=== PATIENT | female | born 1965 | race Caucasian/White ===

== ENCOUNTER 2017-11-19 15:12 | Emergency (ER) | payer OTHER ==
[~2017-11-19] VITALS: Ht 165.1 cm; Wt 99.8 kg
[~2017-11-19 15:12] MED LIST: BACITO TOP; Benadryl 50 mg50 MG PO; CEPH500 PO; CHOL10002 PO; CIPHYDOTSU; Cephalexin500 MG PO; DIAZ10; DIAZ10 PO; DIAZ2 PO; DICL25ER PO; DOCU100 PO; ESTR2 PO; Estradiol0.5 MG PO; HYDACE5; HYDACE5 PO; HYDMOR2 PO; IBUP800; IBUP800 PO; LEVSOD50 PO; LEVSOD75 PO; METPRE4DP PO; Norco 5-325 Ta1 EACH PO; OMEPRAZOLE MAGN20 MG PO; ONDA4ODT MM; OXYACE5T PO; POTASSIUM; PRAV20 PO; PROM25; Percocet 5-3251 EACH PO; RANI150 PO; RXHYDACE PO; RXOXYACE PO; TIZANIDINE HCL2 MG PO; TRAM50 PO; TRAZ150T57 PO; Zofran Odt4 MG SL; Zofran4 MG PO
[2017-11-19] MEDS ORDERED: ALBU90OI INH (17:55)
[2017-11-19] MEDS ORDERED: Prednisone50 MG PO (17:55)
== END 2017-11-19 18:04 | disposition home or self-care (01) ==
LOC: ER 15:12
DX: J40 Bronchitis, not specified as acute or chronic (principal); Z87.891 Personal history of nicotine dependence
CPT/HCPCS: 94640; 99283-25

== ENCOUNTER 2017-11-27 15:03 | Emergency (ER) | payer OTHER ==
[~2017-11-27] VITALS: Ht 165.1 cm; Wt 99.8 kg
[~2017-11-27 15:03] MED LIST changes: +ALBU90OI INH; +Prednisone50 MG PO
[2017-11-27 15:43] LABS: BASOPHILS ABSOLUTE AUTO 0.05 K/mm3 (0.00-0.23); BASOPHILS PERCENT AUTO 1 % (0-2); EOSINOPHILS ABSOLUTE AUTO 0.11 K/mm3 (0.00-0.68); EOSINOPHILS PERCENT AUTO 1 % (0-6); Hematocrit 47.1 % (33.0-51.0); Hemoglobin 15.9 g/dL (11.5-16.0); IMMATURE GRAN ABSOLUTE AUTO 0.04 K/mm3 (0.00-0.10); IMMATURE GRAN PERCENT AUTO 0 % (0-1); LYMPHOCYTES ABSOLUTE AUTO 3.66 K/mm3 (0.84-5.20); LYMPHOCYTES PERCENT AUTO 36 % (21-46); MONOCYTES ABSOLUTE AUTO 0.85 K/mm3 (0.16-1.47); MONOCYTES PERCENT AUTO 8 % (4-13); Mean Corpuscular HGB 29.6 pg (26.0-34.0); Mean Corpuscular HGB Conc 33.8 g/dL (31.5-36.5); Mean Corpuscular Volume 88 fL (80-100); Mean Platelet Volume 10.7 fL (9.1-12.4); NEUTROPHILS ABSOLUTE AUTO 5.58 K/mm3 (1.96-9.15); NEUTROPHILS PERCENT AUTO 54 % (41-73); Platelet Count 349 K/mm3 (150-400); RDW Coefficient Variation 12.2 % (11.7-14.2); RDW Standard Deviation 39.2 fL (35.1-46.3); Red Blood Cell Count 5.37 M/mm3 (3.80-5.20); White Blood Cell Count 10.29 K/mm3 (4.00-11.30)
[2017-11-27 15:59] LABS: Alanine Aminotransfer (ALT/SGP 34 U/L (12-78); Albumin, Blood 3.5 g/dL (3.4-5.0); Albumin/Globulin Ratio 0.8 (0.8-1.8); Alk Phos 144 U/L (50-136); Anion Gap 8 mmol/L (6-16); Aspartate Aminotrans (AST/SGOT 16 U/L (12-37); Bilirubin, Total 0.4 mg/dL (0.1-1.0); Blood Urea Nitrogen 17 mg/dL (8-24); Bun/Creatinine Ratio 17.6 (12.0-20.0); CO2, Blood 27 mmol/L (21-32); Calcium, Blood 9.1 mg/dL (8.5-10.1); Chloride, Blood 103 mmol/L (98-108); Creatinine, Blood 0.97 mg/dL (0.40-1.00); Globulin, Blood 4.5 g/dL (2.2-4.0); Glomerular Filtration Rate >60 (60-); Glucose, Blood 107 mg/dL (70-99); Potassium, Blood 4.2 mmol/L (3.5-5.5); Sodium, Blood 138 mmol/L (136-145); Troponin I <0.015 ng/mL (0.000-0.040)
[2017-11-27] MEDS ORDERED: Prednisone20 MG PO (17:24)
[2017-11-27] MEDS ORDERED: Zithromax250 MG PO (17:24)
== END 2017-11-27 18:28 | disposition home or self-care (01) ==
LOC: ER 15:03
PROVIDERS: Internal Medicine
DX: J40 Bronchitis, not specified as acute or chronic (principal); J98.01 Acute bronchospasm; E78.00 Pure hypercholesterolemia, unspecified; Z79.899 Other long term (current) drug therapy; Z79.52 Long term (current) use of systemic steroids; Z79.51 Long term (current) use of inhaled steroids; Z87.891 Personal history of nicotine dependence
CPT/HCPCS: 36415; 71046; 80053; 84484; 85025; 93005; 93010; 94640; 94644; 96374; 99284-25; J1100; J2930

== ENCOUNTER 2018-03-07 22:28 | Emergency (ER) | payer OTHER ==
[~2018-03-07] VITALS: Ht 162.6 cm; Wt 99.8 kg
[~2018-03-07 22:28] MED LIST changes: +ALBU2.5V5 NEB; +BENZ100A PO; +MIRT15 PO; +PRED20; +Prednisone20 MG PO; +ROPI.25 PO; +TYLECOD3 PO; +Zithromax250 MG PO
[2018-03-07 23:22] LABS: BASOPHILS ABSOLUTE AUTO 0.03 K/mm3 (0.00-0.23); BASOPHILS PERCENT AUTO 0 % (0-2); EOSINOPHILS ABSOLUTE AUTO 0.12 K/mm3 (0.00-0.68); EOSINOPHILS PERCENT AUTO 2 % (0-6); Hematocrit 46.2 % (33.0-51.0); Hemoglobin 15.4 g/dL (11.5-16.0); IMMATURE GRAN ABSOLUTE AUTO 0.02 K/mm3 (0.00-0.10); IMMATURE GRAN PERCENT AUTO 0 % (0-1); LYMPHOCYTES ABSOLUTE AUTO 2.67 K/mm3 (0.84-5.20); LYMPHOCYTES PERCENT AUTO 34 % (21-46); MONOCYTES ABSOLUTE AUTO 0.16 K/mm3 (0.16-1.47); MONOCYTES PERCENT AUTO 2 % (4-13); Mean Corpuscular HGB 28.9 pg (26.0-34.0); Mean Corpuscular HGB Conc 33.3 g/dL (31.5-36.5); Mean Corpuscular Volume 87 fL (80-100); Mean Platelet Volume 10.7 fL (9.1-12.4); NEUTROPHILS ABSOLUTE AUTO 4.98 K/mm3 (1.96-9.15); NEUTROPHILS PERCENT AUTO 62 % (41-73); Platelet Count 303 K/mm3 (150-400); RDW Coefficient Variation 11.9 % (11.7-14.2); RDW Standard Deviation 38.5 fL (35.1-46.3); Red Blood Cell Count 5.32 M/mm3 (3.80-5.20); White Blood Cell Count 7.98 K/mm3 (4.00-11.30)
[2018-03-07 23:40] LABS: Alanine Aminotransfer (ALT/SGP 38 U/L (12-78); Albumin, Blood 3.5 g/dL (3.4-5.0); Albumin/Globulin Ratio 0.8 (0.8-1.8); Alk Phos 131 U/L (50-136); Anion Gap 7 mmol/L (6-16); Aspartate Aminotrans (AST/SGOT 20 U/L (12-37); Bilirubin, Total 0.4 mg/dL (0.1-1.0); Blood Urea Nitrogen 22 mg/dL (8-24); CO2, Blood 30 mmol/L (21-32); Calcium, Blood 8.9 mg/dL (8.5-10.1); Chloride, Blood 99 mmol/L (98-108); Globulin, Blood 4.6 g/dL (2.2-4.0); Glomerular Filtration Rate >60 (60-); Glucose, Blood 114 mg/dL (70-99); Potassium, Blood 3.9 mmol/L (3.5-5.5); Sodium, Blood 136 mmol/L (136-145); Total Protein, Blood 8.1 g/dL (6.4-8.2)
[2018-03-07] MEDS ORDERED: Ranitidine HCl300 M1 PO (23:54)
[2018-03-08 01:49] LABS: Source, Urine Clean Catch
[2018-03-08 01:54] LABS: Bilirubin, Urine Neg (Neg); Blood, Urine Neg (Neg); Glucose Qualitative, Urine Neg (Neg); Ketones, Urine Neg (Neg); Leukocyte Esterase, Urine Neg (Neg); Nitrite, Urine Neg (Neg); Protein, Urine 1+ (Neg); Urobilinogen, Urine NORM (Normal); pH, Urine 6.5 (5.0-8.0)
[2018-03-08 01:55] LABS: Appearance, Urine Clear (Clear); Color, Urine Yellow (P-Yellow)
== END 2018-03-08 02:59 | disposition home or self-care (01) ==
LOC: ER 22:28
PROVIDERS: Emergency Medicine
DX: R11.2 Nausea with vomiting, unspecified (principal); T45.1X5A Adverse effect of antineoplastic and immunosuppressive drugs, initial encounter; C18.9 Malignant neoplasm of colon, unspecified; Z79.899 Other long term (current) drug therapy; Z87.891 Personal history of nicotine dependence
CPT/HCPCS: 36415; 80053; 83690; 85025; 96361; 96374; 96375; 99283-25; C9113; J2405; J2550; J3010; J7030

== ENCOUNTER 2018-03-27 10:59 | Emergency (ER) | payer OTHER ==
[~2018-03-27] VITALS: Ht 165.1 cm; Wt 99.8 kg
[~2018-03-27 10:59] MED LIST changes: +Ranitidine HCl300 M1 PO
[2018-03-27 11:40] LABS: BASOPHILS ABSOLUTE AUTO 0.03 K/mm3 (0.00-0.23); BASOPHILS PERCENT AUTO 1 % (0-2); EOSINOPHILS PERCENT AUTO 2 % (0-6); Hematocrit 43.9 % (33.0-51.0); Hemoglobin 14.6 g/dL (11.5-16.0); IMMATURE GRAN ABSOLUTE AUTO 0.01 K/mm3 (0.00-0.10); IMMATURE GRAN PERCENT AUTO 0 % (0-1); LYMPHOCYTES ABSOLUTE AUTO 2.12 K/mm3 (0.84-5.20); LYMPHOCYTES PERCENT AUTO 33 % (21-46); MONOCYTES ABSOLUTE AUTO 0.15 K/mm3 (0.16-1.47); MONOCYTES PERCENT AUTO 2 % (4-13); Mean Corpuscular HGB Conc 33.3 g/dL (31.5-36.5); Mean Corpuscular Volume 87 fL (80-100); Mean Platelet Volume 11.2 fL (9.1-12.4); NEUTROPHILS ABSOLUTE AUTO 3.93 K/mm3 (1.96-9.15); NEUTROPHILS PERCENT AUTO 62 % (41-73); Platelet Count 357 K/mm3 (150-400); RDW Standard Deviation 40.5 fL (35.1-46.3); Red Blood Cell Count 5.04 M/mm3 (3.80-5.20); White Blood Cell Count 6.34 K/mm3 (4.00-11.30)
[2018-03-27 11:48] LABS: Alanine Aminotransfer (ALT/SGP 20 U/L (12-78); Albumin, Blood 3.6 g/dL (3.4-5.0); Alk Phos 119 U/L (50-136); Anion Gap 8 mmol/L (6-16); Aspartate Aminotrans (AST/SGOT 15 U/L (12-37); Bilirubin, Total 0.5 mg/dL (0.1-1.0); Blood Urea Nitrogen 17 mg/dL (8-24); Bun/Creatinine Ratio 21.2 (12.0-20.0); CO2, Blood 26 mmol/L (21-32); Calcium, Blood 8.7 mg/dL (8.5-10.1); Chloride, Blood 105 mmol/L (98-108); Globulin, Blood 3.6 g/dL (2.2-4.0); Glomerular Filtration Rate >60 (60-); Glucose, Blood 111 mg/dL (70-99); Potassium, Blood 4.1 mmol/L (3.5-5.5); Sodium, Blood 139 mmol/L (136-145); Total Protein, Blood 7.2 g/dL (6.4-8.2)
[2018-03-27] MEDS ORDERED: ONDA4 PO (12:24)
[2018-03-27 12:42] LABS: Source, Urine Clean Catch
[2018-03-27 12:55] LABS: Appearance, Urine Clear (Clear); Bilirubin, Urine Neg (Neg); Blood, Urine Neg (Neg); Color, Urine Yellow (P-Yellow); Glucose Qualitative, Urine Neg (Neg); Ketones, Urine Neg (Neg); Leukocyte Esterase, Urine Neg (Neg); Nitrite, Urine Neg (Neg); Protein, Urine Neg (Neg); Urobilinogen, Urine NORM (Normal)
[2018-03-27] MEDS ORDERED: PROM25 PO (16:47)
== END 2018-03-27 17:00 | disposition home or self-care (01) ==
LOC: ER 10:59
PROVIDERS: Physician Assistant
DX: R11.2 Nausea with vomiting, unspecified (principal); T45.1X5A Adverse effect of antineoplastic and immunosuppressive drugs, initial encounter; C34.90 Malignant neoplasm of unspecified part of unspecified bronchus or lung; E78.00 Pure hypercholesterolemia, unspecified; Z79.899 Other long term (current) drug therapy
CPT/HCPCS: 76705; 80053; 81003; 83690; 85025; 96361; 96374; 96375; 99284-25; J0780; J1170; J1200; J1630; J2550; J7030; J7120

== ENCOUNTER 2018-04-16 02:22 | Observation (INO) | payer OTHER ==
[~2018-04-16] VITALS: Ht 165.1 cm; Wt 101.7 kg
[~2018-04-16 02:22] MED LIST changes: +ONDA4 PO; +PROM25 PO
[2018-04-16 02:45] LABS: BASOPHILS ABSOLUTE AUTO 0.04 K/mm3 (0.00-0.23); BASOPHILS PERCENT AUTO 0 % (0-2); EOSINOPHILS ABSOLUTE AUTO 0.06 K/mm3 (0.00-0.68); EOSINOPHILS PERCENT AUTO 1 % (0-6); Hematocrit 40.3 % (33.0-51.0); Hemoglobin 13.6 g/dL (11.5-16.0); IMMATURE GRAN ABSOLUTE AUTO 0.02 K/mm3 (0.00-0.10); IMMATURE GRAN PERCENT AUTO 0 % (0-1); LYMPHOCYTES ABSOLUTE AUTO 1.95 K/mm3 (0.84-5.20); LYMPHOCYTES PERCENT AUTO 18 % (21-46); MONOCYTES ABSOLUTE AUTO 0.23 K/mm3 (0.16-1.47); MONOCYTES PERCENT AUTO 2 % (4-13); Mean Corpuscular HGB 29.4 pg (26.0-34.0); Mean Corpuscular HGB Conc 33.7 g/dL (31.5-36.5); Mean Corpuscular Volume 87 fL (80-100); Mean Platelet Volume 10.9 fL (9.1-12.4); NEUTROPHILS ABSOLUTE AUTO 8.53 K/mm3 (1.96-9.15); NEUTROPHILS PERCENT AUTO 79 % (41-73); Platelet Count 208 K/mm3 (150-400); RDW Coefficient Variation 13.3 % (11.7-14.2); Red Blood Cell Count 4.63 M/mm3 (3.80-5.20); White Blood Cell Count 10.83 K/mm3 (4.00-11.30)
[2018-04-16 02:57] LABS: Alanine Aminotransfer (ALT/SGP 25 U/L (12-78); Albumin, Blood 3.4 g/dL (3.4-5.0); Albumin/Globulin Ratio 0.9 (0.8-1.8); Alk Phos 122 U/L (50-136); Anion Gap 8 mmol/L (6-16); Aspartate Aminotrans (AST/SGOT 19 U/L (12-37); Bilirubin, Total 0.7 mg/dL (0.1-1.0); Blood Urea Nitrogen 16 mg/dL (8-24); Bun/Creatinine Ratio 18.4 (12.0-20.0); CO2, Blood 28 mmol/L (21-32); Calcium, Blood 8.6 mg/dL (8.5-10.1); Chloride, Blood 105 mmol/L (98-108); Creatinine, Blood 0.87 mg/dL (0.40-1.00); Globulin, Blood 3.6 g/dL (2.2-4.0); Glomerular Filtration Rate >60 (60-); Glucose, Blood 105 mg/dL (70-99); Potassium, Blood 3.9 mmol/L (3.5-5.5); Sodium, Blood 141 mmol/L (136-145)
[2018-04-16 03:42] LABS: Source, Urine Clean Catch
[2018-04-16 03:52] LABS: Appearance, Urine Clear (Clear); Bilirubin, Urine Neg (Neg); Blood, Urine Neg (Neg); Color, Urine Pale Yellow (P-Yellow); Glucose Qualitative, Urine Neg (Neg); Ketones, Urine Neg (Neg); Leukocyte Esterase, Urine Neg (Neg); Nitrite, Urine Neg (Neg); Protein, Urine Neg (Neg); Specific Gravity, Urine 1.005 (1.003-1.022); Urobilinogen, Urine NORM (Normal)
--- NOTE | 2018-04-16 05:58 | NUR ---
MEDICAL ADMIT/SHIFT SUMMARY PT MEDICAL NO TELE STATUS, BROUGHT TO PCU ROOM 7 FROM THE ER BY RMTIMO TODAY @ APPROX 0500. PT ABLE TO AMBULATE FROM GURNEY TO BED AND INTO THE BATHROOM W/OUT ASSISTANCE OR DIFFICULTY. PT C/O NAUSEA, STATES CHEMOTHERAPY TX 04/13 FOLLOWED BY N&V SINCE 04/14. PT STATES LAST EPISODE OF VOMITING TO BE YESTERDAY AFTERNOON, 04/15. PT TX'D FOR NAUSEA PER [facility]. PT STATES NO RELIEF OF NAUSEA W/ MEDICATIONS. VSS. LUNG SOUNDS CLEAR T/O. NS INFUSING PER ORDERS. WILL CONTINUE TO MONITOR AND PROVIDE CARE.
--- NOTE | 2018-04-16 14:15 | NUR ---
PT ARRIVED VIA W/C FROM PCU AND TRANSFERRED SELF IN TO BED. ONCE SHE WAS SETTLED IN [facility] MIST AND ICE CHIPS OFFERED AND GIVEN. PT REPORTS THE NAUSEA WAXES AND WANES. ATTEMPTING TO DOZE AT THIS TIME.
--- NOTE | 2018-04-16 14:55 | NUR ---
Assumed Care: Assumed care of pt at approx 0700. VSS. In no apparent sign of distress. Pt is A&Ox4. Denies any pain w/exception of some mild abd tenderness. See shift assessment for detailed assessment. Dr. Walker at bedside this AM to assess pt. Orders for IV fluids. No further orders at this time. Pt refusing additional nausea medication or pain medication. Pt is medical status, but no bed assignment at this time. Will continue to monitor.
--- NOTE | 2018-04-16 15:02 | NUR ---
Transfer: Report called to Laurita BERMUDEZ on medical floor. Pt transferred to room 340 by set up and charger Jody. Pt in no apparent sign of distress at time of transfer. Medication prior to transfer for continued nausea when pt attempted to eat clear liquid lunch tray. Pt transferred via wheel cair with all belongings in hand at 1345. Denies any further questions, complaints or requests at time of transfer.
--- NOTE | 2018-04-16 18:12 | NUR ---
SHIFT SUMMARY PT HAS CONTINUED TO HAVE NAUSEA ON AND OFF THROUGH AFTERNOON. ASKED FOR COFFEE WITH CREAMER AND SHE REPORTED FEELING BETTER AFTER DRINKING IT. CREAM OF MUSHROOM SOUP GIVEN FOR SUPPER ALONG WITH CLEAR LIQUID DINNER. PT REPORTS IT HASN'T UPSET HER STOMACH. WILL ADVANCE BREAKFAST TO FULL LIQUID.
[2018-04-17 05:29] LABS: Hematocrit 38.1 % (33.0-51.0); Hemoglobin 12.7 g/dL (11.5-16.0); Mean Corpuscular HGB Conc 33.3 g/dL (31.5-36.5); Mean Corpuscular Volume 87 fL (80-100); Platelet Count 179 K/mm3 (150-400); RDW Coefficient Variation 13.3 % (11.7-14.2); RDW Standard Deviation 41.5 fL (35.1-46.3); Red Blood Cell Count 4.38 M/mm3 (3.80-5.20); White Blood Cell Count 7.17 K/mm3 (4.00-11.30)
--- NOTE | 2018-04-17 05:49 | NUR ---
*SHIFT SUMMARY* PATIENT IS ALERT AND ORIENTED. IS TOLERATING LIQUIDS WELL. PATIENT DOES HAVE INTERMITTEN PERIODS OF NAUSEA, MEDICATED ORDERED. PATIENT STATES THE THE MEDICINE DOES NOT RELIEVE THE NAUSEA. PT IS INDEPENDENT TO THE BATHROOM. PATIENT SLEPT WELL THROUGHOUT THE NIGHT. CALL LIGHT IS IN REACH, BED LOWERED AND LOCKED. VITALS WNL.
[2018-04-17 05:50] LABS: Alanine Aminotransfer (ALT/SGP 22 U/L (12-78); Albumin/Globulin Ratio 0.8 (0.8-1.8); Alk Phos 109 U/L (50-136); Anion Gap 8 mmol/L (6-16); Aspartate Aminotrans (AST/SGOT 17 U/L (12-37); Bilirubin, Total 0.8 mg/dL (0.1-1.0); Blood Urea Nitrogen 11 mg/dL (8-24); Bun/Creatinine Ratio 12.9 (12.0-20.0); CO2, Blood 26 mmol/L (21-32); Calcium, Blood 8.3 mg/dL (8.5-10.1); Chloride, Blood 107 mmol/L (98-108); Creatinine, Blood 0.85 mg/dL (0.40-1.00); Globulin, Blood 3.6 g/dL (2.2-4.0); Glomerular Filtration Rate >60 (60-); Glucose, Blood 96 mg/dL (70-99); Potassium, Blood 3.8 mmol/L (3.5-5.5); Sodium, Blood 141 mmol/L (136-145); Total Protein, Blood 6.6 g/dL (6.4-8.2)
--- NOTE | 2018-04-17 15:11 | NUR ---
PATIENT ALERT AND ORIENTED. INTERMITENT NAUSEA, NO VOMITING. MEDICATED . DIET ADVANCED TO REGULAR PER PATIENT REQUEST. IV PATENT. INDEPENDENT IN ROOM. UNLABORED RESPIRATIONS. HAD SOME MIDLINE ABD PAIN EARLY A.M. NO C/O ABOUT 1 HOUR AFTER MORNING MEDS GIVEN. BED IN LOW POSITION. CALL LIGHT WITHIN REACH. WILL CONTINUE TO MONITOR.
--- NOTE | 2018-04-18 05:19 | NUR ---
VSS, AFEBRILE, A/O, IV L AC, NS @ 75, INDEPENDENT, SLEPT WELL, NO COMPLAINTS, MAY D/C TODAY.
--- NOTE | 2018-04-18 07:20 | NUR ---
TALKED TO ABOUT WHETHER I NEED TO CALL [facility] ORDER IN [facility] REQUESTS CALL TO THEM YESTERDAY. WHEN CALLED YESTERDAY GOT ANSWERING SERVICE WHICH SAID THEY ARE CLOSED. ALREADY FOUND OUT WHAT SHE NEEDED TO KNOW FROM PHARMACIST.
[2018-04-18] MEDS ORDERED: Pedi-Dri 100,0060 GM TOP (10:00)
--- NOTE | 2018-04-18 10:46 | NUR ---
AWARE HAS MED AT [facility]. REVIEW HOW TO USE MED. AWARE OFFICE WILL CALL AND SET UP APPT AND IF DOES NOT HEAR FROM THEM TO CALL OFFICE. AWARE TO MAKE F/U APPT W/PCP. DENIES NAUSEA AT THIS TIME. AWARE DIET TOLERATED AND TO KEEP HYDRATED. SMALL FREQUENT MEALS AND FLUIDS. WAITING FOR RIDE.ANSWER ALL QUESTIONS.
--- NOTE | 2018-04-18 11:32 | NUR ---
PATIENT OUT WITH ESCORT AND S.O.
== END 2018-04-18 11:31 | disposition home or self-care (01) ==
LOC: ER 02:22 → PCU 02:23 → MEDS 14:20 → ENPENDDIS 04-18 10:00 → MEDS 04-18 11:31
PROVIDERS: Emergency Medicine; ADMIT Internal Medicine
DX: K85.90 Acute pancreatitis without necrosis or infection, unspecified (principal); E86.0 Dehydration; C34.90 Malignant neoplasm of unspecified part of unspecified bronchus or lung; J44.9 Chronic obstructive pulmonary disease, unspecified; E78.5 Hyperlipidemia, unspecified; M54.9 Dorsalgia, unspecified; G89.29 Other chronic pain; G25.81 Restless legs syndrome; Z90.2 Acquired absence of lung [part of]
CPT/HCPCS: 36415; 80053; 81003; 83690; 85025; 85027; 96361; 96372; 96374; 96375; 96376; 99285; G0378; J1200; J1650; J2405; J2550; J2765; J7030

== ENCOUNTER 2018-05-05 18:28 | Emergency (ER) | payer OTHER ==
[~2018-05-05] VITALS: Ht 162.6 cm; Wt 99.8 kg
[~2018-05-05 18:28] MED LIST changes: +Pedi-Dri 100,0060 GM TOP
[2018-05-05] MEDS ORDERED: EPIDIOLEX100 MG/1 M PO (18:54)
[2018-05-05] MEDS ORDERED: CLOT10 (18:54)
[2018-05-05] MEDS ORDERED: DIAZ5 PO (18:56)
[2018-05-05] MEDS ORDERED: PREG75 PO (18:56)
[2018-05-05] MEDS ORDERED: ROPI1 PO (18:57)
[2018-05-05] MEDS ORDERED: Miralax17 GM PO (18:57)
[2018-05-05] MEDS ORDERED: TRAZ50 PO (18:58)
[2018-05-05 19:44] LABS: BASOPHILS ABSOLUTE AUTO 0.03 K/mm3 (0.00-0.23); BASOPHILS PERCENT AUTO 0 % (0-2); EOSINOPHILS ABSOLUTE AUTO 0.03 K/mm3 (0.00-0.68); EOSINOPHILS PERCENT AUTO 0 % (0-6); Hematocrit 45.1 % (33.0-51.0); Hemoglobin 15.1 g/dL (11.5-16.0); IMMATURE GRAN ABSOLUTE AUTO 0.01 K/mm3 (0.00-0.10); IMMATURE GRAN PERCENT AUTO 0 % (0-1); LYMPHOCYTES ABSOLUTE AUTO 1.87 K/mm3 (0.84-5.20); LYMPHOCYTES PERCENT AUTO 27 % (21-46); MONOCYTES ABSOLUTE AUTO 0.74 K/mm3 (0.16-1.47); MONOCYTES PERCENT AUTO 11 % (4-13); Mean Corpuscular HGB 29.8 pg (26.0-34.0); Mean Corpuscular HGB Conc 33.5 g/dL (31.5-36.5); Mean Corpuscular Volume 89 fL (80-100); Mean Platelet Volume 10.8 fL (9.1-12.4); NEUTROPHILS ABSOLUTE AUTO 4.36 K/mm3 (1.96-9.15); NEUTROPHILS PERCENT AUTO 62 % (41-73); Platelet Count 394 K/mm3 (150-400); RDW Coefficient Variation 14.7 % (11.7-14.2); RDW Standard Deviation 46.8 fL (35.1-46.3); Red Blood Cell Count 5.07 M/mm3 (3.80-5.20); White Blood Cell Count 7.04 K/mm3 (4.00-11.30)
[2018-05-05 19:51] LABS: Alanine Aminotransfer (ALT/SGP 46 U/L (12-78); Albumin, Blood 3.9 g/dL (3.4-5.0); Albumin/Globulin Ratio 0.9 (0.8-1.8); Alk Phos 143 U/L (50-136); Anion Gap 7 mmol/L (6-16); Aspartate Aminotrans (AST/SGOT 24 U/L (12-37); Bilirubin, Total 0.6 mg/dL (0.1-1.0); Blood Urea Nitrogen 11 mg/dL (8-24); Bun/Creatinine Ratio 14.4 (12.0-20.0); CO2, Blood 29 mmol/L (21-32); Calcium, Blood 9.9 mg/dL (8.5-10.1); Chloride, Blood 105 mmol/L (98-108); Creatinine, Blood 0.77 mg/dL (0.40-1.00); Globulin, Blood 4.4 g/dL (2.2-4.0); Glomerular Filtration Rate >60 (60-); Glucose, Blood 100 mg/dL (70-99); Potassium, Blood 3.8 mmol/L (3.5-5.5); Sodium, Blood 141 mmol/L (136-145); Total Protein, Blood 8.3 g/dL (6.4-8.2)
[2018-05-05 21:19] LABS: Source, Urine Clean Catch
[2018-05-05 21:21] LABS: Bilirubin, Urine Neg (Neg); Blood, Urine Neg (Neg); Glucose Qualitative, Urine Neg (Neg); Ketones, Urine 1+ (Neg); Leukocyte Esterase, Urine Neg (Neg); Nitrite, Urine Neg (Neg); Protein, Urine Neg (Neg); Urobilinogen, Urine NORM (Normal)
[2018-05-05 21:24] LABS: Appearance, Urine Clear (Clear); Color, Urine Yellow (P-Yellow)
[2018-05-05] MEDS ORDERED: ONDA4ODT MM (21:32)
[2018-05-05] MEDS ORDERED: Norco 5-325 Ta1 EACH PO (21:32)
== END 2018-05-05 21:46 | disposition home or self-care (01) ==
LOC: ER 18:28
PROVIDERS: Emergency Medicine
DX: K85.90 Acute pancreatitis without necrosis or infection, unspecified (principal); Z79.899 Other long term (current) drug therapy; E78.5 Hyperlipidemia, unspecified; Z87.891 Personal history of nicotine dependence; Z85.118 Personal history of other malignant neoplasm of bronchus and lung
CPT/HCPCS: 74177; 80053; 81003; 83690; 85025; 96361-59; 96374-59; 96375-59; 99284-25; J2405; J3010; J7030; Q9967

== ENCOUNTER 2018-08-05 15:12 | Emergency (ER) | payer OTHER ==
[~2018-08-05] VITALS: Ht 165.1 cm; Wt 95.2 kg
[~2018-08-05 15:12] MED LIST changes: +CLOT10; +DIAZ5 PO; +EPIDIOLEX100 MG/1 M PO; +Miralax17 GM PO; +PREG75 PO; +ROPI1 PO; +TRAZ50 PO
[2018-08-05 16:13] LABS: Alanine Aminotransfer (ALT/SGP 26 U/L (12-78); Albumin, Blood 3.3 g/dL (3.4-5.0); Albumin/Globulin Ratio 0.6 (0.8-1.8); Alk Phos 125 U/L (50-136); Anion Gap 5 mmol/L (6-16); Aspartate Aminotrans (AST/SGOT 20 U/L (12-37); Bilirubin, Total 0.4 mg/dL (0.1-1.0); Blood Urea Nitrogen 9 mg/dL (8-24); Bun/Creatinine Ratio 10.1 (12.0-20.0); CO2, Blood 29 mmol/L (21-32); Calcium, Blood 9.7 mg/dL (8.5-10.1); Chloride, Blood 103 mmol/L (98-108); Creatinine, Blood 0.89 mg/dL (0.40-1.00); Globulin, Blood 5.3 g/dL (2.2-4.0); Glomerular Filtration Rate >60 (60-); Glucose, Blood 130 mg/dL (70-99); Potassium, Blood 3.5 mmol/L (3.5-5.5); Sodium, Blood 137 mmol/L (136-145); Total Protein, Blood 8.6 g/dL (6.4-8.2)
[2018-08-05 16:20] LABS: BASOPHILS ABSOLUTE AUTO 0.05 K/mm3 (0.00-0.23); BASOPHILS PERCENT AUTO 1 % (0-2); EOSINOPHILS ABSOLUTE AUTO 0.06 K/mm3 (0.00-0.68); EOSINOPHILS PERCENT AUTO 1 % (0-6); Hematocrit 43.8 % (33.0-51.0); Hemoglobin 14.2 g/dL (11.5-16.0); IMMATURE GRAN ABSOLUTE AUTO 0.04 K/mm3 (0.00-0.10); IMMATURE GRAN PERCENT AUTO 0 % (0-1); LYMPHOCYTES ABSOLUTE AUTO 2.52 K/mm3 (0.84-5.20); LYMPHOCYTES PERCENT AUTO 25 % (21-46); MONOCYTES PERCENT AUTO 11 % (4-13); Mean Corpuscular HGB 28.2 pg (26.0-34.0); Mean Corpuscular HGB Conc 32.4 g/dL (31.5-36.5); Mean Corpuscular Volume 87 fL (80-100); Mean Platelet Volume 11.6 fL (9.1-12.4); NEUTROPHILS ABSOLUTE AUTO 6.49 K/mm3 (1.96-9.15); NEUTROPHILS PERCENT AUTO 63 % (41-73); Platelet Count 402 K/mm3 (150-400); RDW Coefficient Variation 12.3 % (11.7-14.2); RDW Standard Deviation 39.1 fL (35.1-46.3); Red Blood Cell Count 5.03 M/mm3 (3.80-5.20); White Blood Cell Count 10.26 K/mm3 (4.00-11.30)
[2018-08-05 17:29] LABS: BASOPHILS ABSOLUTE AUTO 0.03 K/mm3 (0.00-0.23); BASOPHILS PERCENT AUTO 0 % (0-2); EOSINOPHILS ABSOLUTE AUTO 0.05 K/mm3 (0.00-0.68); EOSINOPHILS PERCENT AUTO 1 % (0-6); Hematocrit 39.1 % (33.0-51.0); Hemoglobin 12.7 g/dL (11.5-16.0); IMMATURE GRAN ABSOLUTE AUTO 0.02 K/mm3 (0.00-0.10); IMMATURE GRAN PERCENT AUTO 0 % (0-1); LYMPHOCYTES ABSOLUTE AUTO 1.91 K/mm3 (0.84-5.20); LYMPHOCYTES PERCENT AUTO 23 % (21-46); MONOCYTES ABSOLUTE AUTO 0.98 K/mm3 (0.16-1.47); MONOCYTES PERCENT AUTO 12 % (4-13); Mean Corpuscular HGB 28.5 pg (26.0-34.0); Mean Corpuscular HGB Conc 32.5 g/dL (31.5-36.5); Mean Corpuscular Volume 88 fL (80-100); Mean Platelet Volume 11.4 fL (9.1-12.4); NEUTROPHILS ABSOLUTE AUTO 5.48 K/mm3 (1.96-9.15); NEUTROPHILS PERCENT AUTO 65 % (41-73); Platelet Count 327 K/mm3 (150-400); RDW Coefficient Variation 12.2 % (11.7-14.2); RDW Standard Deviation 39.3 fL (35.1-46.3); Red Blood Cell Count 4.45 M/mm3 (3.80-5.20); White Blood Cell Count 8.47 K/mm3 (4.00-11.30)
[2018-08-05 17:49] LABS: Alanine Aminotransfer (ALT/SGP 22 U/L (12-78); Albumin, Blood 2.9 g/dL (3.4-5.0); Albumin/Globulin Ratio 0.6 (0.8-1.8); Alk Phos 109 U/L (50-136); Anion Gap 6 mmol/L (6-16); Aspartate Aminotrans (AST/SGOT 17 U/L (12-37); Bilirubin, Total 0.4 mg/dL (0.1-1.0); Blood Urea Nitrogen 10 mg/dL (8-24); Bun/Creatinine Ratio 11.4 (12.0-20.0); CO2, Blood 29 mmol/L (21-32); Chloride, Blood 103 mmol/L (98-108); Creatinine, Blood 0.88 mg/dL (0.40-1.00); Globulin, Blood 4.8 g/dL (2.2-4.0); Glomerular Filtration Rate >60 (60-); Glucose, Blood 117 mg/dL (70-99); Potassium, Blood 3.4 mmol/L (3.5-5.5); Sodium, Blood 138 mmol/L (136-145); Total Protein, Blood 7.7 g/dL (6.4-8.2)
[2018-08-05] MEDS ORDERED: PROC25S PR (18:29)
== END 2018-08-05 18:52 | disposition home or self-care (01) ==
LOC: ER 15:12
PROVIDERS: Physician Assistant
DX: C34.90 Malignant neoplasm of unspecified part of unspecified bronchus or lung (principal); R11.2 Nausea with vomiting, unspecified; Z87.891 Personal history of nicotine dependence; Z79.899 Other long term (current) drug therapy
CPT/HCPCS: 36415; 71260; 80053; 83605; 83690; 85025; 87040; 93005; 93010; 96361-59; 96374-59; 96375-59; 99284-25; J0780; J1200; J2405; J7030; Q9967

== ENCOUNTER 2018-08-22 16:49 | Emergency (ER) | payer OTHER ==
[~2018-08-22] VITALS: Ht 165.1 cm; Wt 90.7 kg
[~2018-08-22 16:49] MED LIST changes: +PROC25S PR
[2018-08-22 17:43] LABS: BASOPHILS ABSOLUTE AUTO 0.03 K/mm3 (0.00-0.23); BASOPHILS PERCENT AUTO 0 % (0-2); EOSINOPHILS ABSOLUTE AUTO 0.05 K/mm3 (0.00-0.68); EOSINOPHILS PERCENT AUTO 1 % (0-6); Hematocrit 38.6 % (33.0-51.0); Hemoglobin 12.5 g/dL (11.5-16.0); IMMATURE GRAN ABSOLUTE AUTO 0.06 K/mm3 (0.00-0.10); IMMATURE GRAN PERCENT AUTO 1 % (0-1); LYMPHOCYTES ABSOLUTE AUTO 1.29 K/mm3 (0.84-5.20); LYMPHOCYTES PERCENT AUTO 13 % (21-46); MONOCYTES PERCENT AUTO 10 % (4-13); Mean Corpuscular HGB 27.7 pg (26.0-34.0); Mean Corpuscular HGB Conc 32.4 g/dL (31.5-36.5); Mean Corpuscular Volume 86 fL (80-100); NEUTROPHILS ABSOLUTE AUTO 7.32 K/mm3 (1.96-9.15); NEUTROPHILS PERCENT AUTO 75 % (41-73); Platelet Count 382 K/mm3 (150-400); RDW Coefficient Variation 12.5 % (11.7-14.2); RDW Standard Deviation 39.1 fL (35.1-46.3); Red Blood Cell Count 4.51 M/mm3 (3.80-5.20); White Blood Cell Count 9.75 K/mm3 (4.00-11.30)
[2018-08-22 18:08] LABS: Alanine Aminotransfer (ALT/SGP 30 U/L (12-78); Albumin, Blood 2.8 g/dL (3.4-5.0); Albumin/Globulin Ratio 0.6 (0.8-1.8); Alk Phos 114 U/L (50-136); Anion Gap 6 mmol/L (6-16); Aspartate Aminotrans (AST/SGOT 22 U/L (12-37); Bilirubin, Total 0.7 mg/dL (0.1-1.0); Blood Urea Nitrogen 5 mg/dL (8-24); Bun/Creatinine Ratio 6.9 (12.0-20.0); CO2, Blood 28 mmol/L (21-32); Calcium, Blood 7.5 mg/dL (8.5-10.1); Chloride, Blood 104 mmol/L (98-108); Creatinine, Blood 0.73 mg/dL (0.40-1.00); Globulin, Blood 4.4 g/dL (2.2-4.0); Glomerular Filtration Rate >60 (60-); Glucose, Blood 132 mg/dL (70-99); Potassium, Blood 3.3 mmol/L (3.5-5.5); Sodium, Blood 138 mmol/L (136-145); Total Protein, Blood 7.2 g/dL (6.4-8.2)
[2018-08-22] MEDS ORDERED: PROC25S PR (18:49)
[2018-08-22] MEDS ORDERED: COMPAZINE10 MG PO (18:49)
== END 2018-08-22 19:16 | disposition home or self-care (01) ==
LOC: ER 16:49
PROVIDERS: Emergency Medicine
DX: R11.2 Nausea with vomiting, unspecified (principal); E78.5 Hyperlipidemia, unspecified; J44.9 Chronic obstructive pulmonary disease, unspecified; Z87.891 Personal history of nicotine dependence
CPT/HCPCS: 36415; 71045; 80053; 83690; 85025; 96361; 96374; 96375; 99284-25; J1200; J1630; J2405; J7030

== ENCOUNTER 2018-09-01 16:02 | Emergency (ER) | payer OTHER ==
[~2018-09-01] VITALS: Ht 162.6 cm; Wt 88.5 kg
[~2018-09-01 16:02] MED LIST changes: +COMPAZINE10 MG PO
[2018-09-01 16:55] LABS: BASOPHILS ABSOLUTE AUTO 0.04 K/mm3 (0.00-0.23); BASOPHILS PERCENT AUTO 0 % (0-2); EOSINOPHILS ABSOLUTE AUTO 0.22 K/mm3 (0.00-0.68); EOSINOPHILS PERCENT AUTO 2 % (0-6); Hematocrit 43.7 % (33.0-51.0); Hemoglobin 13.9 g/dL (11.5-16.0); IMMATURE GRAN ABSOLUTE AUTO 0.03 K/mm3 (0.00-0.10); IMMATURE GRAN PERCENT AUTO 0 % (0-1); LYMPHOCYTES ABSOLUTE AUTO 1.44 K/mm3 (0.84-5.20); LYMPHOCYTES PERCENT AUTO 16 % (21-46); MONOCYTES ABSOLUTE AUTO 1.07 K/mm3 (0.16-1.47); MONOCYTES PERCENT AUTO 12 % (4-13); Mean Corpuscular HGB 27.5 pg (26.0-34.0); Mean Corpuscular HGB Conc 31.8 g/dL (31.5-36.5); Mean Corpuscular Volume 87 fL (80-100); Mean Platelet Volume 11.3 fL (9.1-12.4); NEUTROPHILS ABSOLUTE AUTO 6.21 K/mm3 (1.96-9.15); NEUTROPHILS PERCENT AUTO 69 % (41-73); Platelet Count 397 K/mm3 (150-400); RDW Coefficient Variation 13.4 % (11.7-14.2); RDW Standard Deviation 41.6 fL (35.1-46.3); Red Blood Cell Count 5.05 M/mm3 (3.80-5.20); White Blood Cell Count 9.01 K/mm3 (4.00-11.30)
[2018-09-01 17:40] LABS: Source, Urine Clean Catch
[2018-09-01 17:59] LABS: Alanine Aminotransfer (ALT/SGP 62 U/L (12-78); Albumin, Blood 3.2 g/dL (3.4-5.0); Albumin/Globulin Ratio 0.7 (0.8-1.8); Alk Phos 125 U/L (50-136); Anion Gap 7 mmol/L (6-16); Aspartate Aminotrans (AST/SGOT 48 U/L (12-37); Bilirubin, Total 0.5 mg/dL (0.1-1.0); Blood Urea Nitrogen 7 mg/dL (8-24); Bun/Creatinine Ratio 9.9 (12.0-20.0); CO2, Blood 28 mmol/L (21-32); Calcium, Blood 9.3 mg/dL (8.5-10.1); Chloride, Blood 103 mmol/L (98-108); Globulin, Blood 4.9 g/dL (2.2-4.0); Glomerular Filtration Rate >60 (60-); Glucose, Blood 111 mg/dL (70-99); Potassium, Blood 3.8 mmol/L (3.5-5.5); Sodium, Blood 138 mmol/L (136-145); Total Protein, Blood 8.1 g/dL (6.4-8.2)
[2018-09-01 18:07] LABS: Bilirubin, Urine Neg (Neg); Blood, Urine Neg (Neg); Glucose Qualitative, Urine Neg (Neg); Ketones, Urine Neg (Neg); Leukocyte Esterase, Urine 1+ (Neg); Nitrite, Urine Neg (Neg); Protein, Urine 1+ (Neg); Specific Gravity, Urine 1.005 (1.003-1.022); Urobilinogen, Urine NORM (Normal)
[2018-09-01 18:13] LABS: Appearance, Urine Hazy (Clear); Color, Urine Yellow (P-Yellow)
[2018-09-01 18:30] LABS: Amorphous Light (0-Heavy); Bacteria Mod /hpf; Red Blood Cells, Urine 0-2 /hpf (0-2); Squamous Epithelial Cells Mod /hpf (Few)
== END 2018-09-01 21:40 | disposition home or self-care (01) ==
LOC: ER 16:02
PROVIDERS: Physician Assistant
DX: R63.4 Abnormal weight loss (principal); Z68.33 Body mass index [BMI] 33.0-33.9, adult; R11.2 Nausea with vomiting, unspecified; C34.91 Malignant neoplasm of unspecified part of right bronchus or lung; Z79.899 Other long term (current) drug therapy; E78.5 Hyperlipidemia, unspecified; J44.9 Chronic obstructive pulmonary disease, unspecified; Z87.891 Personal history of nicotine dependence
CPT/HCPCS: 76705; 80053; 81001; 83690; 85025; 87077; 87086; 87186; 96361; 96374; 99284-25; J2405; J7120

== ENCOUNTER 2018-09-08 06:34 | Day surgery (SDC) | payer OTHER ==
[~2018-09-08] VITALS: Ht 162.6 cm; Wt 89.0 kg
--- NOTE | 2018-09-08 07:21 | NUR ---
BROUGHT INTO [facility] IN WHEEL CHAIR. SAMAN HAD BEEN LEFT IN WAITING ROOM WITH AND PAPERWORK BUT DAY SURGERY STAFF HAD NOT BEEN NOTIFIED. PATIENT SAT IN WAITING ROOM OVER 25 MINUTES
--- NOTE | 2018-09-08 09:09 | NUR ---
COUGH LESSENING WITH DUONEB WITH ADDED LIDOCAINE 1%-3 CCs VIA MASK. PATIENT SLEEPY, COUGH SUBSIDES AND BREATHING CALMS SHE DOSES AND APPEARS COMFORTABLE NOW.
--- NOTE | 2018-09-08 09:37 | NUR ---
IS STEPPING AWAY FOR A FEW MINUTES. PATIENT AT REST AND APPEARS COMFORTABLE AT THIS TIME. PATIENT TO LEFT SIDE, PROVIDED FOR COMFORT WITH PILLOWS AND FRESH WARM BLANKET. CALL LIGHT IN REACH. WILL CONTINUE TO MONITOR.
--- NOTE | 2018-09-08 10:45 | NUR ---
PATIENT TO SUPINE, 3 LEAD REPLACED AND RATE HAS INCREASED FROM ADMIT. WILL NOTIFY DR DICKINSON.
--- NOTE | 2018-09-08 11:28 | NUR ---
LATE [id number] WITH DR DICKINSON REGARDING PATIENT HR INCREASE, NO NEW ORDERS RECEIVED. LATE ENTRY-1100- PATIENT TOLERATING PO SIPS OF H20, THEN GRAPE JUICE WITH NO COUGHS OR SIGNS OF DIFFICULTY. 1110-PATIENT UP TO AMBULATE WITH STAND BY ASSIST ONLY, DID WELL, MORE ALERT, EYES OPEN. CONTINUES WITH PREPROCEDURAL DIAPHORESIS AND NAUSEA WITHOUT CHANGES. PATIENT AND SPOUSE STATE THEY ARE COMFORTABLE WITH D/C INSTRUCTIONS AND WITH DISCHARGE HOME. INSTRUCTIONS GIVEN WITH STATED UNDERSTANDING TO CALL WITH ANY WORSENING OF SYMPTOMS OR ANYTHING NEW OR CONCERNING POST-PROCEDURALLY. PATIENT ABLE TO TOLERATE COLD GRAPE JUICE, NO EMESIS AT TIME OF DISCHARGE, THOUGH TWO EMESIS BAGS SENT WITH PATIENT FOR THE TRIP HOME.
--- NOTE | 2018-09-08 11:36 | NUR ---
PATIENT TRANSFERRED FROM THE WC TO THE CAR WITHOUT DIFFICULTY, STEADY ON HER FEET.
--- NOTE | 2018-09-12 10:02 | NUR ---
09/12/18 1001 Kevon Montemayor 3-LEAD EKG REVIEWED WITH PHYSICIAN PRIOR TO START OF PROCEDURE.Patient to ENDO 2History, Chart, Medications and Allergies reviewed before start of procedure.MONITOR INTACT WITH CONTINUOUS PULSE OXIMETRY AND INTERMITTENT BP.Patient confirms NPO status and agrees with scheduled surgery.O2 VIA N/C INTACT THROUGHOUT SEDATION/PROCEDURE. PATIENT DETERMINED TO BE ASA APPROPRIATE FOR PROPOFOL SEDATION PRIOR TO START OF PROCEDURE BY
== END 2018-09-08 11:38 | disposition home or self-care (01) ==
LOC: ORSCMMR 06:34 → ORD 08:00 → ORSCMMR 11:38
PROVIDERS: Internal Medicine Critical Care Medicine
PROC: 0BDF8ZX Extraction of Right Lower Lung Lobe, Via Natural or Artificial Opening Endoscopic, Diagnostic (ICD-10-PCS; principal; 2018-09-08 08:00)
PROC: 0BB28ZX Excision of Carina, Via Natural or Artificial Opening Endoscopic, Diagnostic (ICD-10-PCS; principal; 2018-09-08 08:00)
DX: C34.01 Malignant neoplasm of right main bronchus (principal); R05 Cough; R11.2 Nausea with vomiting, unspecified; R63.4 Abnormal weight loss; Z87.891 Personal history of nicotine dependence; Z79.899 Other long term (current) drug therapy
CPT/HCPCS: 88173; 88305; J2250; J2704; J7120

== ENCOUNTER 2018-09-09 15:24 | Emergency (ER) | payer OTHER ==
[~2018-09-09] VITALS: Ht 162.6 cm; Wt 86.2 kg
[2018-09-09 16:28] LABS: BASOPHILS ABSOLUTE AUTO 0.04 K/mm3 (0.00-0.23); BASOPHILS PERCENT AUTO 1 % (0-2); EOSINOPHILS ABSOLUTE AUTO 0.37 K/mm3 (0.00-0.68); EOSINOPHILS PERCENT AUTO 4 % (0-6); Hematocrit 40.4 % (33.0-51.0); Hemoglobin 12.8 g/dL (11.5-16.0); IMMATURE GRAN ABSOLUTE AUTO 0.05 K/mm3 (0.00-0.10); IMMATURE GRAN PERCENT AUTO 1 % (0-1); LYMPHOCYTES ABSOLUTE AUTO 1.49 K/mm3 (0.84-5.20); LYMPHOCYTES PERCENT AUTO 17 % (21-46); MONOCYTES ABSOLUTE AUTO 1.07 K/mm3 (0.16-1.47); MONOCYTES PERCENT AUTO 12 % (4-13); Mean Corpuscular HGB 26.8 pg (26.0-34.0); Mean Corpuscular HGB Conc 31.7 g/dL (31.5-36.5); Mean Corpuscular Volume 85 fL (80-100); Mean Platelet Volume 11.3 fL (9.1-12.4); NEUTROPHILS ABSOLUTE AUTO 5.71 K/mm3 (1.96-9.15); NEUTROPHILS PERCENT AUTO 65 % (41-73); Platelet Count 384 K/mm3 (150-400); RDW Coefficient Variation 13.6 % (11.7-14.2); RDW Standard Deviation 41.7 fL (35.1-46.3); Red Blood Cell Count 4.77 M/mm3 (3.80-5.20); White Blood Cell Count 8.73 K/mm3 (4.00-11.30)
[2018-09-09 16:48] LABS: Alanine Aminotransfer (ALT/SGP 34 U/L (12-78); Albumin, Blood 2.9 g/dL (3.4-5.0); Albumin/Globulin Ratio 0.7 (0.8-1.8); Alk Phos 116 U/L (50-136); Anion Gap 7 mmol/L (6-16); Aspartate Aminotrans (AST/SGOT 18 U/L (12-37); Bilirubin, Total 0.4 mg/dL (0.1-1.0); Blood Urea Nitrogen 6 mg/dL (8-24); Bun/Creatinine Ratio 10.4 (12.0-20.0); CO2, Blood 27 mmol/L (21-32); Calcium, Blood 8.4 mg/dL (8.5-10.1); Chloride, Blood 105 mmol/L (98-108); Creatinine, Blood 0.58 mg/dL (0.40-1.00); Globulin, Blood 4.2 g/dL (2.2-4.0); Glomerular Filtration Rate >60 (60-); Glucose, Blood 99 mg/dL (70-99); Potassium, Blood 3.6 mmol/L (3.5-5.5); Sodium, Blood 139 mmol/L (136-145); Total Protein, Blood 7.1 g/dL (6.4-8.2)
[2018-09-09 17:53] LABS: Source, Urine Clean Catch
[2018-09-09 17:58] LABS: Bilirubin, Urine Neg (Neg); Blood, Urine Neg (Neg); Glucose Qualitative, Urine Neg (Neg); Ketones, Urine Neg (Neg); Leukocyte Esterase, Urine Neg (Neg); Nitrite, Urine Neg (Neg); Protein, Urine Neg (Neg); Specific Gravity, Urine 1.015 (1.003-1.022); Urobilinogen, Urine NORM (Normal)
[2018-09-09 18:22] LABS: Appearance, Urine Clear (Clear); Color, Urine Yellow (P-Yellow)
== END 2018-09-09 19:27 | disposition home or self-care (01) ==
LOC: ER 15:24
PROVIDERS: Emergency Medicine
DX: R11.2 Nausea with vomiting, unspecified (principal); R19.7 Diarrhea, unspecified; R53.83 Other fatigue; E78.5 Hyperlipidemia, unspecified; J44.9 Chronic obstructive pulmonary disease, unspecified; Z87.891 Personal history of nicotine dependence
CPT/HCPCS: 80053; 81003; 83690; 85025; 96361; 96374; 99283-25; J2765; J7030; P9612

== ENCOUNTER 2018-09-19 09:09 | Emergency (ER) | payer OTHER ==
[~2018-09-19] VITALS: Ht 167.6 cm; Wt 90.7 kg
[2018-09-19 09:58] LABS: BASOPHILS ABSOLUTE AUTO 0.03 K/mm3 (0.00-0.23); BASOPHILS PERCENT AUTO 0 % (0-2); EOSINOPHILS ABSOLUTE AUTO 0.53 K/mm3 (0.00-0.68); EOSINOPHILS PERCENT AUTO 6 % (0-6); IMMATURE GRAN ABSOLUTE AUTO 0.07 K/mm3 (0.00-0.10); IMMATURE GRAN PERCENT AUTO 1 % (0-1); LYMPHOCYTES ABSOLUTE AUTO 1.15 K/mm3 (0.84-5.20); LYMPHOCYTES PERCENT AUTO 12 % (21-46); MONOCYTES ABSOLUTE AUTO 1.11 K/mm3 (0.16-1.47); MONOCYTES PERCENT AUTO 12 % (4-13); Mean Corpuscular HGB 26.9 pg (26.0-34.0); Mean Corpuscular HGB Conc 32.6 g/dL (31.5-36.5); Mean Corpuscular Volume 83 fL (80-100); Mean Platelet Volume 11.1 fL (9.1-12.4); NEUTROPHILS ABSOLUTE AUTO 6.77 K/mm3 (1.96-9.15); NEUTROPHILS PERCENT AUTO 70 % (41-73); Platelet Count 319 K/mm3 (150-400); RDW Coefficient Variation 14.6 % (11.7-14.2); RDW Standard Deviation 42.5 fL (35.1-46.3); Red Blood Cell Count 5.21 M/mm3 (3.80-5.20); White Blood Cell Count 9.66 K/mm3 (4.00-11.30)
[2018-09-19 10:14] LABS: Alanine Aminotransfer (ALT/SGP 75 U/L (12-78); Albumin/Globulin Ratio 0.7 (0.8-1.8); Alk Phos 133 U/L (50-136); Anion Gap 6 mmol/L (6-16); Aspartate Aminotrans (AST/SGOT 29 U/L (12-37); Bilirubin, Total 0.6 mg/dL (0.1-1.0); Blood Urea Nitrogen 15 mg/dL (8-24); Bun/Creatinine Ratio 22.7 (12.0-20.0); CO2, Blood 25 mmol/L (21-32); Calcium, Blood 8.1 mg/dL (8.5-10.1); Chloride, Blood 103 mmol/L (98-108); Creatinine, Blood 0.66 mg/dL (0.40-1.00); Globulin, Blood 4.4 g/dL (2.2-4.0); Glomerular Filtration Rate >60 (60-); Glucose, Blood 114 mg/dL (70-99); Potassium, Blood 3.9 mmol/L (3.5-5.5); Sodium, Blood 134 mmol/L (136-145); Total Protein, Blood 7.4 g/dL (6.4-8.2)
[2018-09-19] MEDS ORDERED: PROM12.5S PR (12:01)
== END 2018-09-19 13:43 | disposition home or self-care (01) ==
LOC: ER 09:09
PROVIDERS: Physician Assistant
DX: E86.0 Dehydration (principal); R11.2 Nausea with vomiting, unspecified; E78.00 Pure hypercholesterolemia, unspecified; Z87.891 Personal history of nicotine dependence; C34.90 Malignant neoplasm of unspecified part of unspecified bronchus or lung
CPT/HCPCS: 36415; 80053; 85025; 96361; 96374; 99283-25; J2550; J7030

== ENCOUNTER 2018-10-19 15:05 | Inpatient (IN) | payer OTHER ==
[~2018-10-19] VITALS: Ht 162.6 cm; Wt 86.3 kg
[~2018-10-19 15:05] MED LIST changes: +PROM12.5S PR
[2018-10-19 15:40] LABS: BASOPHILS ABSOLUTE AUTO 0.02 K/mm3 (0.00-0.23); BASOPHILS PERCENT AUTO 0 % (0-2); EOSINOPHILS ABSOLUTE AUTO 0.03 K/mm3 (0.00-0.68); EOSINOPHILS PERCENT AUTO 1 % (0-6); Hematocrit 41.7 % (33.0-51.0); Hemoglobin 13.9 g/dL (11.5-16.0); IMMATURE GRAN ABSOLUTE AUTO 0.02 K/mm3 (0.00-0.10); IMMATURE GRAN PERCENT AUTO 0 % (0-1); LYMPHOCYTES ABSOLUTE AUTO 0.86 K/mm3 (0.84-5.20); LYMPHOCYTES PERCENT AUTO 17 % (21-46); MONOCYTES PERCENT AUTO 18 % (4-13); Mean Corpuscular HGB 27.7 pg (26.0-34.0); Mean Corpuscular HGB Conc 33.3 g/dL (31.5-36.5); Mean Corpuscular Volume 83 fL (80-100); Mean Platelet Volume 10.6 fL (9.1-12.4); NEUTROPHILS ABSOLUTE AUTO 3.15 K/mm3 (1.96-9.15); NEUTROPHILS PERCENT AUTO 63 % (41-73); Platelet Count 190 K/mm3 (150-400); RDW Coefficient Variation 15.8 % (11.7-14.2); RDW Standard Deviation 47.8 fL (35.1-46.3); Red Blood Cell Count 5.01 M/mm3 (3.80-5.20); White Blood Cell Count 4.98 K/mm3 (4.00-11.30)
[2018-10-19 16:01] LABS: Alanine Aminotransfer (ALT/SGP 36 U/L (12-78); Albumin, Blood 2.6 g/dL (3.4-5.0); Albumin/Globulin Ratio 0.6 (0.8-1.8); Alk Phos 85 U/L (50-136); Anion Gap 8 mmol/L (6-16); Aspartate Aminotrans (AST/SGOT 37 U/L (12-37); Bilirubin, Total 0.7 mg/dL (0.1-1.0); Blood Urea Nitrogen 6 mg/dL (8-24); CO2, Blood 25 mmol/L (21-32); Chloride, Blood 99 mmol/L (98-108); Creatinine, Blood 0.75 mg/dL (0.40-1.00); Globulin, Blood 4.1 g/dL (2.2-4.0); Glomerular Filtration Rate >60 (60-); Glucose, Blood 108 mg/dL (70-99); Sodium, Blood 132 mmol/L (136-145); Total Protein, Blood 6.7 g/dL (6.4-8.2)
[2018-10-19 18:13] LABS: Source, Urine Clean Catch
[2018-10-19 18:40] LABS: Bilirubin, Urine Neg (Neg); Blood, Urine 1+ (Neg); Color, Urine Yellow (P-Yellow); Glucose Qualitative, Urine Neg (Neg); Ketones, Urine 1+ (Neg); Leukocyte Esterase, Urine 2+ (Neg); Nitrite, Urine Neg (Neg); Protein, Urine 1+ (Neg); Urobilinogen, Urine 3+ (Normal)
[2018-10-19 19:02] LABS: Appearance, Urine Clear (Clear); Red Blood Cells, Urine 0-2 /hpf (0-2)
[2018-10-19 19:03] LABS: Bacteria Few /hpf; Squamous Epithelial Cells Few /hpf (Few)
[2018-10-19] MEDS ORDERED: GABA300 PO (20:34)
[2018-10-19] MEDS ORDERED: Bactrim 400-801 EACH (20:36)
[2018-10-19] MEDS ORDERED: TRAM50 PO ×2 (22:29→22:31)
[2018-10-20 04:45] LABS: BASOPHILS ABSOLUTE AUTO 0.03 K/mm3 (0.00-0.23); BASOPHILS PERCENT AUTO 1 % (0-2); EOSINOPHILS ABSOLUTE AUTO 0.09 K/mm3 (0.00-0.68); EOSINOPHILS PERCENT AUTO 3 % (0-6); Hematocrit 37.2 % (33.0-51.0); IMMATURE GRAN ABSOLUTE AUTO 0.01 K/mm3 (0.00-0.10); IMMATURE GRAN PERCENT AUTO 0 % (0-1); LYMPHOCYTES ABSOLUTE AUTO 0.61 K/mm3 (0.84-5.20); LYMPHOCYTES PERCENT AUTO 17 % (21-46); MONOCYTES ABSOLUTE AUTO 0.76 K/mm3 (0.16-1.47); MONOCYTES PERCENT AUTO 21 % (4-13); Mean Corpuscular HGB 27.7 pg (26.0-34.0); Mean Corpuscular HGB Conc 32.3 g/dL (31.5-36.5); Mean Platelet Volume 10.1 fL (9.1-12.4); NEUTROPHILS ABSOLUTE AUTO 2.16 K/mm3 (1.96-9.15); NEUTROPHILS PERCENT AUTO 59 % (41-73); Platelet Count 183 K/mm3 (150-400); RDW Coefficient Variation 16.1 % (11.7-14.2); RDW Standard Deviation 51.3 fL (35.1-46.3); Red Blood Cell Count 4.33 M/mm3 (3.80-5.20); White Blood Cell Count 3.66 K/mm3 (4.00-11.30)
[2018-10-20 04:46] LABS: Mean Corpuscular Volume 86 fL (80-100)
[2018-10-20 05:01] LABS: Anion Gap 6 mmol/L (6-16); Blood Urea Nitrogen 5 mg/dL (8-24); Bun/Creatinine Ratio 6.8 (12.0-20.0); CO2, Blood 27 mmol/L (21-32); Calcium, Blood 7.4 mg/dL (8.5-10.1); Chloride, Blood 107 mmol/L (98-108); Creatinine, Blood 0.73 mg/dL (0.40-1.00); Glomerular Filtration Rate >60 (60-); Glucose, Blood 92 mg/dL (70-99); Potassium, Blood 3.9 mmol/L (3.5-5.5); Sodium, Blood 140 mmol/L (136-145)
[2018-10-22 05:17] LABS: BASOPHILS ABSOLUTE AUTO 0.02 K/mm3 (0.00-0.23); BASOPHILS PERCENT AUTO 1 % (0-2); EOSINOPHILS PERCENT AUTO 3 % (0-6); Hematocrit 32.4 % (33.0-51.0); IMMATURE GRAN PERCENT AUTO 0 % (0-1); LYMPHOCYTES ABSOLUTE AUTO 0.52 K/mm3 (0.84-5.20); LYMPHOCYTES PERCENT AUTO 17 % (21-46); MONOCYTES ABSOLUTE AUTO 0.64 K/mm3 (0.16-1.47); MONOCYTES PERCENT AUTO 21 % (4-13); Mean Corpuscular HGB 27.7 pg (26.0-34.0); Mean Platelet Volume 10.4 fL (9.1-12.4); NEUTROPHILS ABSOLUTE AUTO 1.84 K/mm3 (1.96-9.15); NEUTROPHILS PERCENT AUTO 59 % (41-73); Platelet Count 242 K/mm3 (150-400); RDW Coefficient Variation 15.9 % (11.7-14.2); RDW Standard Deviation 47.8 fL (35.1-46.3); Red Blood Cell Count 3.97 M/mm3 (3.80-5.20); White Blood Cell Count 3.12 K/mm3 (4.00-11.30)
[2018-10-22 05:18] LABS: Mean Corpuscular Volume 82 fL (80-100)
[2018-10-22 05:34] LABS: Anion Gap 7 mmol/L (6-16); Blood Urea Nitrogen 1 mg/dL (8-24); CO2, Blood 27 mmol/L (21-32); Calcium, Blood 7.5 mg/dL (8.5-10.1); Chloride, Blood 105 mmol/L (98-108); Glomerular Filtration Rate >60 (60-); Glucose, Blood 96 mg/dL (70-99); Potassium, Blood 3.4 mmol/L (3.5-5.5); Sodium, Blood 139 mmol/L (136-145)
[2018-10-23 18:01] LABS: Adenovirus Not Detected (NOT DETECT); Bordetella pertussis Not Detected (NOT DETECT); Chlamydophila pneumoniae Not Detected (NOT DETECT); Coronavirus 229E Not Detected (NOT DETECT); Coronavirus HKU1 Not Detected (NOT DETECT); Coronavirus NL63 Not Detected (NOT DETECT); Coronavirus OC43 Not Detected (NOT DETECT); Human Metapneumovirus Not Detected (NOT DETECT); Human Rhinovirus/Enterovirus Not Detected (NOT DETECT); Influenza A Not Detected (NOT DETECT); Influenza A/2009-H1 Not Detected (NOT DETECT); Influenza A/H1 Not Detected (NOT DETECT); Influenza A/H3 Not Detected (NOT DETECT); Influenza B Not Detected (NOT DETECT); Mycoplasma pneumoniae Not Detected (NOT DETECT); Parainfluenza Virus 1 Not Detected (NOT DETECT); Parainfluenza Virus 2 Not Detected (NOT DETECT); Parainfluenza Virus 3 Not Detected (NOT DETECT); Parainfluenza Virus 4 Not Detected (NOT DETECT); Respiratory Syncytial Virus Not Detected (NOT DETECT)
[2018-10-24] MEDS ORDERED: ACET325 PO (10:53)
[2018-10-24] MEDS ORDERED: BENZ100A PO (10:54)
[2018-10-24] MEDS ORDERED: CITA20 PO (10:54)
[2018-10-24] MEDS ORDERED: DEXT30SU PO (10:55)
[2018-10-24] MEDS ORDERED: PROM25 PO (10:56)
[2018-10-24] MEDS ORDERED: TRAZ50 PO (10:57)
[2018-10-24] MEDS ORDERED: Florastor250 MG PO (11:03)
[2018-10-24] MEDS ORDERED: AMOCLA875 PO (11:05)
[2018-10-24] MEDS ORDERED: LEVO750 PO (11:06)
[2018-10-24] MEDS ORDERED: GABA400 PO (11:06)
== END 2018-10-24 12:15 | disposition home or self-care (01) | DRG 194 ==
LOC: ER 15:05 → MEDS 20:12 → ER 20:12 → MEDS 22:15 → ENPENDDIS 10-24 11:10 → MEDS 10-24 12:15
PROVIDERS: Emergency Medicine; Internal Medicine; Nurse Practitioner Acute Care; ADMIT Hospitalist
DX: J18.1 Lobar pneumonia, unspecified organism (principal); C34.90 Malignant neoplasm of unspecified part of unspecified bronchus or lung; F33.9 Major depressive disorder, recurrent, unspecified; E87.1 Hypo-osmolality and hyponatremia; G25.81 Restless legs syndrome; Z90.2 Acquired absence of lung [part of]; G47.00 Insomnia, unspecified; E78.5 Hyperlipidemia, unspecified; Z87.891 Personal history of nicotine dependence; R11.2 Nausea with vomiting, unspecified
CPT/HCPCS: 0099U; 36415; 71046; 74176; 80048; 80053; 81001; 83605; 83690; 84145; 85025; 87040; 87086; 93005; 93010; 94762; 96361; 96365; 96367; 96372; 96375; 97116; 97162; 97165; 97530; 97535; 99285-25; A9270; G0378; J0456; J0696; J1650; J1956; J2060; J2405; J7030; J7050

== ENCOUNTER → 2018-11-03 | Outpatient (CLI) | payer OTHER ==
[~2018-11-03] MED LIST changes: +ACET325 PO; +AMOCLA875 PO; +Bactrim 400-801 EACH; +CITA20 PO; +DEXT30SU PO; +Florastor250 MG PO; +GABA300 PO; +GABA400 PO; +LEVO750 PO
== END | disposition home or self-care (01) ==
LOC: OLS 09:10 → LAB SHORT 09:10 → LAB FUT 11-02 18:00
DX: R19.7 Diarrhea, unspecified (principal)
CPT/HCPCS: 87493; 89055

== ENCOUNTER 2019-03-07 08:36 | Day surgery (SDC) | payer OTHER ==
[~2019-03-07] VITALS: Ht 162.6 cm; Wt 96.3 kg
[~2019-03-07 08:36] MED LIST changes: +ALBU2.5V5 INH; +ATHLETE'S FOO35.4 GM TOP; +ENDOCET 2.5-321 EACH PO; +Zantac150 MG PO
[2019-03-07] MEDS ORDERED: OXYC15ER PO (09:14)
--- NOTE | 2019-03-07 09:45 | NUR ---
Ambulatory in Day Surgery. Surgical site prepped with 2% Chlorhexidine cloth wipe. History, Chart, Medications and Allergies reviewed before start of procedure.Lungs clear T/O to Auscultation. Patient confirms NPO status and agrees with scheduled surgery. Patient confirms NPO status and agrees with scheduled surgery. Patient States Post-Procedure ride home has been arranged. Patient reports completing Chlorhexadine shower X2 prior to admission to hospital.
--- NOTE | 2019-03-07 12:53 | NUR ---
1254 IV DONNA. LISA INTACT. SITE WNL
== END 2019-03-07 12:55 | disposition home or self-care (01) ==
LOC: ORSCMMR 08:36 → ORD 10:00 → ORSCMMR 10:00
PROVIDERS: Surgery
PROC: 05HM33Z Insertion of Infusion Device into Right Internal Jugular Vein, Percutaneous Approach (ICD-10-PCS; principal; 2019-03-07 10:00)
PROC: B5131ZA Fluoroscopy of Right Jugular Veins using Low Osmolar Contrast, Guidance (ICD-10-PCS; principal; 2019-03-07 10:00)
DX: C34.11 Malignant neoplasm of upper lobe, right bronchus or lung (principal); E05.90 Thyrotoxicosis, unspecified without thyrotoxic crisis or storm; E78.5 Hyperlipidemia, unspecified; F17.210 Nicotine dependence, cigarettes, uncomplicated; E66.01 Morbid (severe) obesity due to excess calories; Z68.36 Body mass index [BMI] 36.0-36.9, adult; K21.9 Gastro-esophageal reflux disease without esophagitis; Z79.899 Other long term (current) drug therapy
CPT/HCPCS: 77001; C1788; J0690; J1100; J1642; J2250; J2405; J2704; J3010; J7120

== ENCOUNTER → 2019-09-05 | Outpatient (CLI) | payer OTHER ==
[~2019-09-05] MED LIST changes: +OXYC15ER PO; +PHENERGAN25 MG PR
[2019-09-05 13:52] LABS: BASOPHILS ABSOLUTE AUTO 0.08 K/mm3 (0.00-0.23); BASOPHILS PERCENT AUTO 1 % (0-2); EOSINOPHILS ABSOLUTE AUTO 0.36 K/mm3 (0.00-0.68); EOSINOPHILS PERCENT AUTO 4 % (0-6); Hematocrit 44.1 % (33.0-51.0); Hemoglobin 14.5 g/dL (11.5-16.0); IMMATURE GRAN ABSOLUTE AUTO 0.05 K/mm3 (0.00-0.10); IMMATURE GRAN PERCENT AUTO 1 % (0-1); LYMPHOCYTES ABSOLUTE AUTO 1.56 K/mm3 (0.84-5.20); LYMPHOCYTES PERCENT AUTO 16 % (21-46); MONOCYTES PERCENT AUTO 14 % (4-13); Mean Corpuscular HGB 28.8 pg (26.0-34.0); Mean Corpuscular HGB Conc 32.9 g/dL (31.5-36.5); Mean Corpuscular Volume 88 fL (80-100); Mean Platelet Volume 11.3 fL (9.1-12.4); NEUTROPHILS ABSOLUTE AUTO 6.29 K/mm3 (1.96-9.15); NEUTROPHILS PERCENT AUTO 65 % (41-73); Platelet Count 383 K/mm3 (150-400); RDW Coefficient Variation 12.6 % (11.7-14.2); RDW Standard Deviation 40.2 fL (35.1-46.3); Red Blood Cell Count 5.04 M/mm3 (3.80-5.20); White Blood Cell Count 9.64 K/mm3 (4.00-11.30)
[2019-09-05 13:57] LABS: Alanine Aminotransfer (ALT/SGP 29 U/L (12-78); Albumin, Blood 2.7 g/dL (3.4-5.0); Albumin/Globulin Ratio 0.6 (0.8-1.8); Alk Phos 94 U/L (50-136); Anion Gap 7 mmol/L (6-16); Aspartate Aminotrans (AST/SGOT 22 U/L (12-37); Bilirubin, Total 0.3 mg/dL (0.1-1.0); Blood Urea Nitrogen 7 mg/dL (8-24); Bun/Creatinine Ratio 8.2 (12.0-20.0); CO2, Blood 31 mmol/L (21-32); Calcium, Blood 9.2 mg/dL (8.5-10.1); Chloride, Blood 99 mmol/L (98-108); Creatinine, Blood 0.85 mg/dL (0.40-1.00); Globulin, Blood 4.6 g/dL (2.2-4.0); Glomerular Filtration Rate >60 (60-); Glucose, Blood 102 mg/dL (70-99); Potassium, Blood 3.7 mmol/L (3.5-5.5); Sodium, Blood 137 mmol/L (136-145); Total Protein, Blood 7.3 g/dL (6.4-8.2)
== END | disposition home or self-care (01) ==
LOC: LAB SHORT 13:17 → LAB 13:17
PROVIDERS: Registered Nurse Oncology
DX: C34.11 Malignant neoplasm of upper lobe, right bronchus or lung (principal); G89.3 Neoplasm related pain (acute) (chronic); R30.0 Dysuria; R11.0 Nausea
CPT/HCPCS: 80053; 85025